=== PATIENT | male | born 1990 | race Caucasian/White ===

== ENCOUNTER 2023-08-25 17:25 | Emergency (ER) | payer MEDICAID, OTHER ==
[~2023-08-25] VITALS: Ht 165.1 cm; Wt 61.4 kg
[~2023-08-25 17:25] MED LIST: BENZ1TAB84 PO; LURA40TA2 PO
[2023-08-25 17:51] VITALS: BP 115/75; PULSE 96; RESP 16; TEMP 98.3
== END 2023-08-25 18:20 | disposition left against medical advice (07) ==
LOC: EMS 17:25
DX: G47.00 Insomnia, unspecified (principal); Z53.21 Procedure and treatment not carried out due to patient leaving prior to being seen by health care provider
CPT/HCPCS: 99281; Z7502